=== PATIENT | male | born 1940 | race Caucasian/White ===

== ENCOUNTER → 2020-07-09 09:19 | Outpatient (BNVA) | payer MEDICARE, OTHER, SELFPAY | PROVIDERS: PCP Internal Medicine; Visit Provider Urology | DX: N40.1 Benign prostatic hyperplasia with lower urinary tract symptoms (principal); N13.8 Other obstructive and reflux uropathy; R39.14 Feeling of incomplete bladder emptying; R39.12 Poor urinary stream | CPT/HCPCS: 51798; 99212 ==

== ENCOUNTER → 2020-09-23 11:44 | Outpatient (BNVA) | payer MEDICARE, OTHER, SELFPAY | PROVIDERS: Visit Provider Urology | DX: R31.29 Other microscopic hematuria (principal); N40.1 Benign prostatic hyperplasia with lower urinary tract symptoms; R39.14 Feeling of incomplete bladder emptying | CPT/HCPCS: 52000; 81002; 99212 ==

== ENCOUNTER → 2020-09-27 09:23 | Outpatient (BNVA) | payer MEDICARE, OTHER, SELFPAY | PROVIDERS: Visit Provider Urology | DX: N40.1 Benign prostatic hyperplasia with lower urinary tract symptoms (principal); N13.8 Other obstructive and reflux uropathy; R39.14 Feeling of incomplete bladder emptying; R39.12 Poor urinary stream | CPT/HCPCS: 51798; 99212 ==

== ENCOUNTER → 2021-01-06 10:29 | Outpatient (BNVA) | payer MEDICARE, OTHER, SELFPAY | PROVIDERS: Visit Provider Urology | DX: N40.1 Benign prostatic hyperplasia with lower urinary tract symptoms (principal); R39.14 Feeling of incomplete bladder emptying; R39.12 Poor urinary stream; R35.0 Frequency of micturition | CPT/HCPCS: 51798; 99212 ==

== ENCOUNTER 2021-02-28 06:08 | Day surgery (SDC) | payer MEDICARE, OTHER, SELFPAY ==
[2021-01-14 09:38] VITALS: BMI 24.3
--- NOTE | 2021-02-25 11:47 | P.CONAN_ITS ---
Documented by User: Bhumika Alison 02/25/21 11:52 HPI - Anesthesia Eval Consult details Narrative: 80yo M for Green Light Laser Ablation of Prostate Cardiac cleared (Nuc stress done. 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 COPD (chronic obstructive pulmonary disease) COVID-19 vaccine administered Diabetes Elevated cholesterol GERD (gastroesophageal reflux disease) History of esophageal cancer HTN (hypertension) Hx of gout Nocturia On anticoagulant therapy Pacemaker Port-A-Cath in place PVD (peripheral vascular disease) Urinary frequency Urinary urgency Surgical History Surgical History H/O colonoscopy History of lumbar laminectomy Hx of CABG Hx of cardiac catheterization Status post placement of cardiac pacemaker Social History Social History Use of substances other than those prescribed or required for medical reasons: No Have you been hit, kicked, punched, or otherwise hurt by someone within the past year? If so, by whom?: No Are you DNR?: No Advance Directives Information Provided: No Recently lost weight without trying: No Eating poorly because of decreased appetite: No Nutrition Risks: Surgical patient >75years Poor oral hygiene: No (upper partial) Meds Allergies Allergy/AdvReac Type Severity Reaction Status Date / Time Iodinated Contrast Media Allergy Unknown Verified 02/28/21 06:25 [Contrast Dye] Home Medications Medication Instructions Recorded Confirmed Last Taken Type albuterol sulfate [Proventil HFA] 2 puff INHALATION Q4-6H PRN 01/14/21 01/14/21 Unknown History allopurinol 100 mg PO QAM 01/14/21 01/14/21 02/28/21 05:15 History apixaban [Eliquis] 5 mg PO BID 01/14/21 02/28/21 02/22/21 History atorvastatin 20 mg PO BEDTIME 01/14/21 01/14/21 Unknown History budesonide-formoterol [Symbicort] 1 puff INHALATION BEDTIME 01/14/21 01/14/21 Unknown History carvedilol 6.25 mg PO BID 01/14/21 01/14/21 02/28/21 05:15 History cholecalciferol (vitamin D3) 50 mcg PO Q2D 01/14/21 01/14/21 Unknown History [Vitamin D3] coenzyme Q10 [Co Q-10] 300 mg PO BEDTIME 01/14/21 01/14/21 Unknown History cyanocobalamin (vitamin B-12) 1,000 mcg PO DAILY 01/14/21 01/14/21 Unknown History [Vitamin B-12] docusate sodium 100 mg PO BEDTIME 01/14/21 01/14/21 Unknown History doxazosin 1 mg PO BEDTIME 01/14/21 01/14/21 Unknown History finasteride 5 mg PO QAM 01/14/21 01/14/21 02/28/21 05:15 History insulin glargine [Lantus Solostar 15 unit SUBCUT QPM 01/14/21 02/28/21 02/27/21 20:30 History U-100 Insulin] 9 units insulin glargine [Lantus Solostar 17 unit SUBCUT QAM 01/14/21 02/28/21 02/28/21 05:15 History U-100 Insulin] 9 units losartan 25 mg PO QAM 01/14/21 01/14/21 Unknown History magnesium oxide 400 mg PO BEDTIME 01/14/21 01/14/21 Unknown History omeprazole 20 mg PO QAM 01/14/21 01/14/21 02/28/21 05:15 History temazepam 15 mg PO BEDTIME PRN 01/14/21 01/14/21 Unknown History thiamine HCl (vitamin B1) 100 mg PO DAILY 01/14/21 01/14/21 Unknown History tiotropium bromide [Spiriva with 1 cap INHALATION DAILY 01/14/21 01/14/21 02/28/21 05:15 History HandiHaler] torsemide 60 mg PO QAM 01/14/21 01/14/21 Unknown History Exam Exam Date and Time: February 25, 2021 1147 Height,Weight and Vital Signs: Height 6 ft 1 in Weight 83.461 kg Narrative Narrative: Pacer Interr 11/2020 on chart, [id number] Assessment and Plan Assessment Anesthesia Assessment: Chart Reviewed Documented by User: Gisell Fowler 02/28/21 07:51 [facility] Past Medical History Medical History Arrhythmia Back pain CAD (coronary artery disease) CHF (congestive heart failure) Chronic renal insufficiency 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 COPD (chronic obstructive pulmonary disease) COVID-19 vaccine administered Diabetes Elevated cholesterol GERD (gastroesophageal reflux disease) History of esophageal cancer HTN (hypertension) Hx of gout Nocturia On anticoagulant therapy Pacemaker Port-A-Cath in place PVD (peripheral vascular disease) Urinary frequency Urinary urgency Surgical History Surgical History H/O colonoscopy History of lumbar laminectomy Hx of CABG Hx of cardiac catheterization Status post placement of cardiac pacemaker Social History Social History Use of substances other than those prescribed or required for medical reasons: No Have you been hit, kicked, punched, or otherwise hurt by someone within the past year? If so, by whom?: No Are you DNR?: No Advance Directives Information Provided: No Recently lost weight without trying: No Eating poorly because of decreased appetite: No Nutrition Risks: Surgical patient >75years Poor oral hygiene: No (upper partial) Meds Allergies Allergy/AdvReac Type Severity Reaction Status Date / Time Iodinated Contrast Media Allergy Unknown Verified 02/28/21 06:25 [Contrast Dye] Home Medications Medication Instructions Recorded Confirmed Last Taken Type albuterol sulfate [Proventil HFA] 2 puff INHALATION Q4-6H PRN 01/14/21 01/14/21 Unknown History allopurinol 100 mg PO QAM 01/14/21 01/14/21 02/28/21 05:15 History apixaban [Eliquis] 5 mg PO BID 01/14/21 02/28/21 02/22/21 History atorvastatin 20 mg PO BEDTIME 01/14/21 01/14/21 Unknown History budesonide-formoterol [Symbicort] 1 puff INHALATION BEDTIME 01/14/21 01/14/21 Unknown History carvedilol 6.25 mg PO BID 01/14/21 01/14/21 02/28/21 05:15 History cholecalciferol (vitamin D3) 50 mcg PO Q2D 01/14/21 01/14/21 Unknown History [Vitamin D3] coenzyme Q10 [Co Q-10] 300 mg PO BEDTIME 01/14/21 01/14/21 Unknown History cyanocobalamin (vitamin B-12) 1,000 mcg PO DAILY 01/14/21 01/14/21 Unknown Hi story [Vitamin B-12] docusate sodium 100 mg PO BEDTIME 01/14/21 01/14/21 Unknown History doxazosin 1 mg PO BEDTIME 01/14/21 01/14/21 Unknown History finasteride 5 mg PO QAM 01/14/21 01/14/21 02/28/21 05:15 History insulin glargine [Lantus Solostar 15 unit SUBCUT QPM 01/14/21 02/28/21 02/27/21 20:30 History U-100 Insulin] 9 units insulin glargine [Lantus Solostar 17 unit SUBCUT QAM 01/14/21 02/28/21 02/28/21 05:15 History U-100 Insulin] 9 units losartan 25 mg PO QAM 01/14/21 01/14/21 Unknown History magnesium oxide 400 mg PO BEDTIME 01/14/21 01/14/21 Unknown History omeprazole 20 mg PO QAM 01/14/21 01/14/21 02/28/21 05:15 History temazepam 15 mg PO BEDTIME PRN 01/14/21 01/14/21 Unknown History thiamine HCl (vitamin B1) 100 mg PO DAILY 01/14/21 01/14/21 Unknown History tiotropium bromide [Spiriva with 1 cap INHALATION DAILY 01/14/21 01/14/21 02/28/21 05:15 History HandiHaler] torsemide 60 mg PO QAM 01/14/21 01/14/21 Unknown History Exam Airway Mallampati Class: II TM Dist: >3cm Neck ROM: Limited Partial: Upper Loose/Missing/Broken Teeth: Yes and Upper Heart: RRR Lungs: distant but clear
[2021-02-28] VITALS (9 sets, daily range): BP systolic 126–149; BP diastolic 62–81; PULSE 53–84; RESP 16; TEMP 36.1–36.3; O2SAT 93–100
--- NOTE | 2021-02-28 | ECG_ITS ---
Test Reason : CAD, CHF, COPD, DM, Preop Blood Pressure : / mmHG Vent. Rate : 094 BPM Atrial Rate : 063 BPM P-R Int : 000 ms QRS Dur : 180 ms QT Int : 466 ms P-R-T Axes : 101 -63 115 degrees QTc Int : 582 ms AV dual-paced rhythm with Premature ventricular complexes Abnormal ECG No previous ECGs available Referred By: Bhumika Rosas Electronically Signed By:HE BRUNSON MD
[2021-02-28 06:35] LABS: Hematocrit 32.7 % (42-52); Hemoglobin 9.8 g/dl (14.0-18.0); Mean Corpuscular Hemoglobin 27.8 pg (27.0-33.0); Mean Corpuscular Volume 92.9 fL (80-98); Mean Platelet Volume 10.2 fL (9.4-12.4); Platelet Count 158 X10*3/uL (160-400); Red Blood Count 3.52 X10*6/uL (4.60-5.80); Red Cell Distribution Width 15.9 % (11.0-16.0)
[2021-02-28 06:52] LABS: Glucose, Whole Blood 114 mg/dL (60-115)
[2021-02-28 07:00] LABS: Anion Gap 13 (12-20); Blood Urea Nitrogen 60 mg/dL (9-16); Calcium 9.1 mg/dL (8.4-10.2); Carbon Dioxide 26 mmol/L (22-29); Chloride 105 mmol/L (96-108); Creatinine Clr Calc Pharmacy 29.6; Estimated Glomerular Filt Rate 27; Glucose Fasting 110 mg/dL (60-99); Potassium 4.2 mmol/L (3.3-5.1); Sodium 140 mmol/L (135-145)
[2021-02-28] MEDS: Lactated Ringers 1,000 ML 50 ML IVCONT (07:12)
[2021-02-28] MEDS: 0.9 % Sodium Chloride 500 ML 20 ML IVCONT (07:20)
--- NOTE | 2021-02-28 07:27 | MHC.SHP ---
Pre-Procedural Eval Section A The patient is an INPATIENT: No Changes since office visit: No Cold of Flu in the past 2 weeks, No New Medical Problems, No Changes in Medication and No Patient answered all questions The History & Physical has been completed within 30 days and I have reviewed it.: Yes Section B Chief Complaint: poor urine flow Allergies: Allergies Allergy/AdvReac Type Severity Reaction Status Date / Time Iodinated Contrast Media Allergy Unknown Verified 02/28/21 06:25 [Contrast Dye] Plan Diagnosis/Plan: Unchanged (Greenlight laser prostate) I have reviewed the history and physical and performed a pertinent physical examination on my patient. No changes have occurred unless specified.
[2021-02-28] MEDS: levoFLOXacin 500 MG TABLET PO (07:33)
--- NOTE | 2021-02-28 09:26 | P.OP_ITS ---
Operative Note Operative Note Date of Service: 02/28/21 Narrative: PreOperative Diagnosis: Bladder outlet obstruction Post Operative Diagnosis: Bladder outlet obstruction Procedure: GreenLight laser enucleation of the prostate Surgeon: Dr Wolf Moore Anesthesia: General Indications for procedure: History of bladder outlet obstruction. Treated with alpha-haris and other medications. Still with symptoms. On cystoscopy in office has tight bladder neck. Recommendation for prostate procedure with laser enucleation of prostate. It has been discussed. Focus was placed on development of retrograde examination which is a normal part of this procedure. Procedure: After informed consent was verified the patient was brought to the operating room and placed in a supine position. Anesthesia was administered per protocol. Patient was placed in modified dorsal lithotomy position and prepped and draped in a sterile fashion. Safety pause time-out was confirmed. Antibiotics have been given. Twenty-four Citizen [place] laser cystoscope was inserted per urethra. No abnormalities found the anterior posterior urethra. The bladder was filled on both ureteric orifices were seen in normal position away from our area of interest. Using a GreenLight laser settings of 80 w incisions were made at the 5 and 7 o'clock position. They were taken down and then laterally on each side. They were brought from the bladder neck down to the level of the veru. These defined the lateral aspects of the median lobe area. The median lobe was ablated and en ucleated tissue removed. Once the median lobe area had been cleaned attention was directed to the lateral lobes. We started with the patient's left lateral lobe. Firstly the 05:00 o'clock groove was further developed. This was moved in the lateral position to undermine the tissue on the lateral side. Focus was then placed on the laser at the 1 o'clock position in developing a secondary groove down to the level of bladder fibers. The intervening tissue between these 2 grooves was removed with a combination of enucleation ablation working from the apex toward the bladder neck. A similar procedure was repeated on the patient's right-hand side. When this was completed debris and pieces of prostate removed from the bladder. Both ureteric orifices were reviewed again in shown to be patent in away from any areas of energy damage. The apical area was reviewed in any stray ooze was controlled. A 22 [place] 30 cc balloon Kay catheter was placed over stylet into the bladder. Clear efflux was obtained. 30 cc was placed in the balloon and gentle traction was placed. A snap was used to hold tension once the patient will be moved and transported. Once transportation its finish this novel be removed. A belladonna and opiate suppository was placed for postprocedure pain management. He tolerated procedure well was extubated in the operating and transferred in a stable condition to the recovery area. - total energy [id number] Green Light Pathology: Prostate tissue Drains: Kay catheter
== END 2021-02-28 11:25 | disposition home or self-care (01) ==
PROVIDERS: Nurse Practitioner; PCP Internal Medicine; Visit Provider Urology
PROC: 0V507ZZ Destruction of Prostate, Via Natural or Artificial Opening (ICD-10-PCS; CPT 52648; principal; 2021-02-28 07:30)
DX: N40.1 Benign prostatic hyperplasia with lower urinary tract symptoms (principal); N13.8 Other obstructive and reflux uropathy; R39.12 Poor urinary stream; J44.9 Chronic obstructive pulmonary disease, unspecified; I13.0 Hypertensive heart and chronic kidney disease with heart failure and stage 1 through stage 4 chronic kidney disease, or unspecified chronic kidney disease; I50.30 Unspecified diastolic (congestive) heart failure; N18.30 Chronic kidney disease, stage 3 unspecified; E11.22 Type 2 diabetes mellitus with diabetic chronic kidney disease; I48.91 Unspecified atrial fibrillation; Z95.0 Presence of cardiac pacemaker; Z79.01 Long term (current) use of anticoagulants; Z79.4 Long term (current) use of insulin; Z91.041 Radiographic dye allergy status; Z79.51 Long term (current) use of inhaled steroids; Z79.899 Other long term (current) drug therapy; Z87.891 Personal history of nicotine dependence
CPT/HCPCS: 52648; 36415; 80048; 82947; 85027; 88305; 93005; J2370; J2405; J3010; Q9967

== ENCOUNTER → 2021-03-03 11:46 | Outpatient (BNVA) | payer MEDICARE, OTHER, SELFPAY | PROVIDERS: PCP Internal Medicine; Visit Provider Urology | DX: N40.1 Benign prostatic hyperplasia with lower urinary tract symptoms (principal); N13.8 Other obstructive and reflux uropathy; R31.0 Gross hematuria | CPT/HCPCS: 99212 ==

== ENCOUNTER → 2021-03-08 10:41 | Outpatient (BNVA) | payer MEDICARE, OTHER, SELFPAY | PROVIDERS: PCP Internal Medicine; Visit Provider Urology | DX: R33.9 Retention of urine, unspecified (principal) | CPT/HCPCS: 51700; 99212 ==